=== PATIENT | female | born 2000 | race Caucasian/White ===

== ENCOUNTER 2022-12-08 00:46 | Emergency (ER) | payer MEDICAID, SELFPAY ==
--- NOTE | ~2022-12-08 | US_ITS ---
EXAMINATION: US OBSTETRICAL ULTRASOUND CLINICAL INFORMATION: Bilateral lower abdominal pain. COMPARISON: None available.. LMP: Unknown. TECHNIQUE: Ultrasound of the maternal pelvis is performed using transabdominal and transvaginal transducers. Transvaginal imaging is performed due to inadequate visualization transabdominally. M-mode Doppler is also performed. FINDINGS: Anteverted uterus. No intrauterine identified. There is prominent colonic identified at the region of the lower uterine segment/cervix. MATERNAL ADNEXA: The right maternal ovary measures 2.4 x 1.6 x 2.5 cm. Normal arterial and venous spectral waveforms are seen. The left maternal ovary measures 1.6 x 1.5 x 1.4 cm. There is no significant maternal adnexal mass. No maternal pelvic ascites. US/US pelvic ovarian doppler IMPRESSION: No intrauterine identified. No ectopic seen. Prominent clot identified in the region of the lower uterine segment/cervix. This could be associated with a failed .
--- NOTE | ~2022-12-08 | US_ITS ---
EXAMINATION: US OBSTETRICAL ULTRASOUND CLINICAL INFORMATION: Bilateral lower abdominal pain. COMPARISON: None available.. LMP: Unknown. TECHNIQUE: Ultrasound of the maternal pelvis is performed using transabdominal and transvaginal transducers. Transvaginal imaging is performed due to inadequate visualization transabdominally. M-mode Doppler is also performed. FINDINGS: Anteverted uterus. No intrauterine identified. There is prominent colonic identified at the region of the lower uterine segment/cervix. MATERNAL ADNEXA: The right maternal ovary measures 2.4 x 1.6 x 2.5 cm. Normal arterial and venous spectral waveforms are seen. The left maternal ovary measures 1.6 x 1.5 x 1.4 cm. There is no significant maternal adnexal mass. No maternal pelvic ascites. US/US OB pelvic and transvaginal IMPRESSION: No intrauterine identified. No ectopic seen. Prominent clot identified in the region of the lower uterine segment/cervix. This could be associated with a failed .
[2022-12-08 00:53] VITALS: BP 111/53; PULSE 94; RESP 20; TEMP 36.8; O2SAT 98; BMI 21.8
[2022-12-08 01:09] LABS: MANUAL DIFF FLAG NO
[2022-12-08 01:10] LABS: Basophils Absolute Auto 0.1 X10*3/uL (0.0-0.2); Basophils Percent Auto 0.4 % (0-2); Eosinophils Absolute Auto 0.1 X10*3/uL (0.0-0.4); Eosinophils Percent Auto 0.4 % (0-4); Hematocrit 33.6 % (37.0-47.0); Hemoglobin 11.4 g/dl (12.0-16.0); Imm Gran Abs Auto 0.04 X10*3/uL (0.00-0.03); Imm Gran Pct Auto 0.3 % (0.0-0.4); Lymphocytes Percent Auto 19.4 % (20-40); Mean Corpuscular HGB Conc 33.9 g/dl (31.0-35.0); Mean Corpuscular Hemoglobin 28.6 pg (27.0-33.0); Mean Corpuscular Volume 84.4 fL (80.0-98.0); Monocytes Absolute Auto 0.7 X10*3/uL (0.1-1.2); Monocytes Percent Auto 4.8 % (2-11); Neutrophils Absolute Auto 11.4 x10*3/uL (2.0-8.3); Neutrophils Percent Auto 74.7 % (45-73); Platelet Count 226 X10*3/uL (160-400); Red Blood Count 3.98 X10*6/uL (4.20-5.50); White Blood Count 15.2 X10*3/uL (4.8-10.8)
--- NOTE | 2022-12-08 01:14 | MHC.EDTECH ---
pt blood drawn and urine sample collected and sent to lab .
[2022-12-08 01:18] LABS: Appearance Urine Cloudy; Color Urine Orange; Glucose Urine UA Negative (Negative); Leukocyte Esterase Urine Moderate (2+) (Negative); Nitrite Urine Positive (Negative); Specific Gravity - Urine >= 1.030 (1.005-1.025); UMIC TRIGGER UACC YES; Urine Blood Large (3+) (Negative); Urine Ketones Negative (Negative); Urine Protein 100 (2+) mg/dL (Neg-Trace)
[2022-12-08 01:22] LABS: Bacteria Urine Trace (None Seen); Hyaline Casts Urine 0-2 /LPF (0-2); RBC Urine >20 /HPF (0-2); UACC Culture Trigger YES; WBC Urine 21-50 /HPF (0-5)
[2022-12-08 01:34] LABS: Alanine Aminotransferase 7 U/L (0-31); Albumin Level 4.2 g/dL (3.5-5.0); Alkaline Phosphatase 65 U/L (39-117); Anion Gap 14 (12-20); Aspartate Amino Transferase 15 U/L (5-31); Bilirubin Direct < 0.2 mg/dL (0.0-0.5); Bilirubin Total 0.4 mg/dL (0.0-1.0); Blood Urea Nitrogen 7 mg/dL (9-16); Calcium 9.3 mg/dL (8.4-10.2); Carbon Dioxide 21 mmol/L (22-29); Chloride 108 mmol/L (96-108); Creatinine Clr Calc Pharmacy 87.9; Estimated Glomerular Filt Rate > 60; Glucose Random 117 mg/dL (60-115); Lipase 18 U/L (8-78); Potassium 3.8 mmol/L (3.3-5.1); Sodium 139 mmol/L (135-145); Total Protein 6.8 g/dL (6.5-8.0)
[2022-12-08 01:40] LABS: HCG Quantitative 5692 mIU/mL
--- NOTE | 2022-12-08 03:24 | PC.NURSE ---
partner at bedside. this rn provided pt with pad. US tech at bedside to take pt down for US
[2022-12-08 04:17] VITALS: BP 102/55; PULSE 74; RESP 16; TEMP 36.9; O2SAT 100
--- NOTE | 2022-12-08 05:07 | ED.GENADULT ---
HPI - General Adult General Chief complaint: Vaginal Bleeding Stated complaint: 8 WEEKS , BLEEDING , CRAMPS, ABD PAIN Time Seen by Provider: 12/08/22 04:46 Source: patient Mode of arrival: ambulatory Limitations: no limitations History of Present Illness HPI narrative: 22-year-old female presents approximately 8 weeks of gestation with abdominal cramping, vaginal bleeding. Symptoms started over the past couple days. She describes the symptoms as severe. She has passed clots and tissue. She has had no fevers or chills. Describes the pain is moderate in nature. He has no clear relieving or exacerbating features. She denies any fevers or chills, diarrhea constipation. Related Data Allergies Allergy/AdvReac Type Severity Reaction Status Date / Time No Known Allergies Allergy Verified 12/08/22 00:58 [No Known Allergies*] [facility] Social History Social History Advance Directives: No Advance Directives Information Provided: Yes Physical Exam ED Vital Signs: Vital Signs - 24 hr 12/08/22 00:53 12/08/22 04:17 Temperature 98.3 F 98.4 F Pulse Rate 94 74 Respiratory Rate 20 16 Blood Pressure 111/53 L 102/55 L Pulse Oximetry 98 100 Oxygen Delivery Method Room Air Room Air BMI result Body Mass Index 21.8 GEN: Well developed, no acute distress, alert, oriented HEENT: Normocephalic, atraumatic, normal external ears, nose appears normal, no oropharyngeal edema or exudates Eyes: Normal to appearance Neck: Supple, no lymphadenopathy Respiratory: Talks in complete sentences, no respiratory distress, clear to auscultation bilaterally Cardiovascular: Regular rate and rhythm, no murmurs rubs or gallops Abdomen: Soft, nontender, nondistended, no guarding, no rebound Back: No CVA tenderness Extremities: No clubbing cyanosis or edema Neurologic: No focal neurologic deficits, cranial nerves 2-12 intact, strength is 5/5 bilaterally, gait normal Skin: No rash : no active bleeding, no tissue, external os opened, internal os closed Course Course Course Narrative: 22-year-old female presents with vaginal bleeding and abdominal pain. Examination revealed no significant tenderness, rebound or guarding. No palpable masses. Patient had an ultrasound which did not identify an IUP or an ectopic . It is possible there is debris in the cervix consistent with an miscarriage. Her quantitative hCG is not significantly elevated at only 5000. She your still waiting on a type and screen for the patient as well. Will contact OBGYN. She currently is without provider. . Reevaluation(s) Reevaluation #1: [employer] with Dr. Echeverria, recommended repeat Quant HCG now and 48 hour follow up. Reevaluation #2: Patient pending HCG #2, Rh. Oncoming doctor aware. Time: 06:38 Medical Decision Making Medical Decision Making [facility] Narrative: 22-year-old female presents with vaginal bleed abdominal discomfort. Exam was benign. He I suspect patient is having a 1st trimester miscarriage. Ectopic cannot be ruled out at this time. Her quantitative HCG was only 5000. This could certainly represent early that is not identifiable ultrasound however I doubt this. Will order a type and screen to see if patient requires RhoGAM. Will contact OBGYN. Differential Diagnosis Differential Diagnoses: The differential diagnosis associated with the presentation includes (His cares, threatened miscarriage, early trimester bleeding, vaginal bleeding, ectopic ) Threatened Admission/Observation Consideration of admission/observation: Escalation of care including admission/observation considered Consult Healthcare Provider Management of the patient was discussed with: Lead [employer] Developer Lab Data [facility] Lab Attestation statement: I reviewed the patient's lab results. 12/08/22 01:05 12/08/22 01:05 Labs: Lab Results 12/08/22 12/08/22 12/08/22 Range/Units 01:05 01:05 01:05 WBC 15.2 H (4.8-10.8) X10*3/uL RBC 3.98 L (4.20-5.50) X10*6/uL Hgb 11.4 L (12.0-16.0) g/dl Hct 33.6 L (37.0-47.0) % MCV 84.4 (80.0-98.0) fL MCH 28.6 (27.0-33.0) pg MCHC 33.9 (31.0-35.0) g/dl RDW 13.0 (11.0-16.0) % Plt Count 226 (160-400) X10*3/uL MPV 10.0 (9.4-12.3) fL Immature Gran % (Auto) 0.3 (0.0-0.4) % Neut % (Auto) 74.7 H (45-73) % Lymph % (Auto) 19.4 L (20-40) % [place] % (Auto) 4.8 (2-11) % Eos % (Auto) 0.4 (0-4) % Baso % (Auto) 0.4 (0-2) % Lymph # (Auto) 3.0 (1.2-4.9) X10*3/uL [place] # (Auto) 0.7 (0.1-1.2) X10*3/uL Eos # (Auto) 0.1 (0.0-0.4) X10*3/uL Baso # (Auto) 0.1 (0.0-0.2) X10*3/uL Abs Immat Gran (auto) 0.04 H (0.00-0.03) X10*3/uL Absolute Neuts (auto) 11.4 H (2.0-8.3) x10*3/uL Absolute Nucleated RBC 0.000 (0.0-0.012) X10*3/uL Nucleated RBC % (auto) 0.0 (0.0-0.2) /100WBC Sodium 139 (135-145) mmol/L Potassium 3.8 (3.3-5.1) mmol/L Chloride 108 (96-108) mmol/L Carbon Dioxide 21 L (22-29) mmol/L Anion Gap 14 (12-20) BUN 7 L (9-16) mg/dL Creatinine 0.69 (0.5-1.4) mg/dL Estim Creat Clear Calc 87.9 Estimated GFR > 60 Random Glucose 117 H (60-115) mg/dL Calcium 9.3 (8.4-10.2) mg/dL Total Bilirubin 0.4 (0.0-1.0) mg/dL Direct Bilirubin < 0.2 (0.0-0.5) mg/dL AST 15 (5-31) U/L ALT 7 (0-31) U/L Alkaline Phosphatase 65 (39-117) U/L Total Protein 6.8 (6.5-8.0) g/dL Albumin 4.2 (3.5-5.0) g/dL Lipase 18 (8-78) U/L Beta HCG, Quant 5692 mIU/mL Urine Color Urine Appearance Urine pH (5.0-9.0) Ur Specific [place] (1.005-1.025) Urine Protein (Neg-Trace) mg/dL Urine Glucose (UA) (Negative) mg/dL Urine Ketones (Negative) mg/dL Urine Blood (Negative) Urine Nitrite (Negative) Ur Leukocyte Esterase (Negative) Urine RBC (0-2) /HPF Urine WBC (0-5) /HPF Ur Squamous Epith Cells (0-2) /HPF Urine Bacteria (None Seen) Hyaline Casts (0-2) /LPF 12/08/22 Range/Units 01:10 WBC (4.8-10.8) X10*3/uL RBC (4.20-5.50) X10*6/uL Hgb (12.0-16.0) g/dl Hct (37.0-47.0) % MCV (80.0-98.0) fL MCH (27.0-33.0) pg MCHC (31.0-35.0) g/dl RDW (11.0-16.0) % Plt Count (160-400) X10*3/uL MPV (9.4-12.3) fL Immature Gran % (Auto) (0.0-0.4) % Neut % (Auto) (45-73) % Lymph % (Auto) (20-40) % [place] % (Auto) (2-11) % Eos % (Auto) (0-4) % Baso % (Auto) (0-2) % Lymph # (Auto) (1.2-4.9) X10*3/uL [place] # (Auto) (0.1-1.2) X10*3/uL Eos # (Auto) (0.0-0.4) X10*3/uL Baso # (Auto) (0.0-0.2) X10*3/uL Abs Immat Gran (auto) (0.00-0.03) X10*3/uL Absolute Neuts (auto) (2.0-8.3) x10*3/uL Absolute Nucleated RBC (0.0-0.012) X10*3/uL Nucleated RBC % (auto) (0.0-0.2) /100WBC Sodium (135-145) mmol/L Potassium (3.3-5.1) mmol/L Chloride (96-108) mmol/L Carbon Dioxide (22-29) mmol/L Anion Gap (12-20) BUN (9-16) mg/dL Creatinine (0.5-1.4) mg/dL Estim Creat Clear Calc Estimated GFR Random Glucose (60-115) mg/dL Calcium (8.4-10.2) mg/dL Total Bilirubin (0.0-1.0) mg/dL Direct Bilirubin (0.0-0.5) mg/dL AST (5-31) U/L ALT (0-31) U/L Alkaline Phosphatase (39-117) U/L Total Protein (6.5-8.0) g/dL Albumin (3.5-5.0) g/dL Lipase (8-78) U/L Beta HCG, Quant mIU/mL Urine Color [place] A Urine Appearance Cloudy Urine pH 5.0 (5.0-9.0) Ur Specific [place] >= 1.030 H (1.005-1.025) Urine Protein 100 (2+) H (Neg-Trace) mg/dL Urine Glucose (UA) Negative (Negative) mg/dL Urine Ketones Negative (Negative) mg/dL Urine Blood Large (3+) H (Negative) Urine Nitrite Positive H (Negative) Ur Leukocyte Esterase Moderate (2+) H (Negative) Urine RBC >20 H (0-2) /HPF Urine WBC 21-50 H (0-5) /HPF Ur Squamous Epith Cells 6-10 (0-2) /HPF Urine Bacteria Trace (None Seen) Hyaline Casts 0-2 (0-2) /LPF Radiology Impression Discussion of test interpretation with radiology: I have reviewed the radiologist's reading. ( US/US pelvic ovarian doppler IMPRESSION: No intrauterine identified. No ectopic seen. Prominent clot identified in the region of the lower uterine segment/cervix. This could be associated with a failed . Dictated By:Efe Klein MDSigned By:) Tests considered The following testing was considered but not selected: Additional blood work Prescription Management I considered prescription management with: Pain Medication and Other (RhoGAM) Discharge Plan Discharge Clinical Impression: Threatened Patient Disposition: Home, Self-Care Instructions: Threatened Miscarriage (ED) Referrals: Nitesh Echeverria MD [Physician] - 2 days (repeat quantitative HCG - if unable to see Dr. Echeverria you may return to the Emergency department)
--- NOTE | 2022-12-08 05:25 | P.CONOB_ITS ---
MARKETING AND COMMUNICATIONS OFFICER - CN: HPI Data of Consult Consult date: 12/08/22 Primary Care Provider: Unknown Physician Consult Narrative Narrative: I was consulted at 05:14 on Maddie Starks who is a 22 year old female 1 para 0 presented to the emergency room at around 8 weeks of gestation from LMP with 2 day history of abdominal cramping, vaginal bleeding associated with passage of blood clots and tissue.? No fever or chills. HCG is 5692, H&H 11.4/33.6. Rh status still pending. Pelvic Ultrasound showed the following: IMPRESSION: No intrauterine identified. No ectopic seen. Prominent clot identified in the region of the lower uterine segment/cervix. This could be associated with a failed cc:: CC: OB [facility] Social History Social History Alcohol intake: never Smoked in Last 30 Days: No Use of substances other than those prescribed or required for medical reasons: No Advance Directives: No Advance Directives Information Provided: Yes Patient : Yes Meds Allergies Allergy/AdvReac Type Severity Reaction Status Date / Time No Known Allergies Allergy Verified 12/08/22 00:58 [No Known Allergies*] [employer] AND [employer]ICATION[employer] OFFICER Physical Exam Vitals Vital signs: Temp Pulse Resp BP Pulse Ox O2 Del Method 98.4 F 74 16 102/55 L 100 Room Air 12/08/22 04:17 12/08/22 04:17 12/08/22 04:17 12/08/22 04:17 12/08/22 04:17 12/08/22 04:17 BMI result Body Mass Index 21.8 Additional Comments: Physical exam reported by Dr. Giorgi Ruano as the following: Abdominal exam: Soft nontender no guarding or rebound Pelvic exam: no evidence of active vaginal bleeding, no tissues at the cervical os MARKETING AND COMMUNICATIONS OFFICER - Results Labs 12/08/22 01:05 12/08/22 01:05 Labs: Short CBC 12/08/22 Range/Units 01:05 WBC 15.2 H (4.8-10.8) X10*3/uL Hgb 11.4 L (12.0-16.0) g/dl Hct 33.6 L (37.0-47.0) % Plt Count 226 (160-400) X10*3/uL BMP 12/08/22 01:05 Sodium 139 Potassium 3.8 Chloride 108 Carbon Dioxide 21 L BUN 7 L Creatinine 0.69 Calcium 9.3 Liver Function 12/08/22 Range/Units 01:05 Total Bilirubin 0.4 (0.0-1.0) mg/dL Direct Bilirubin < 0.2 (0.0-0.5) mg/dL AST 15 (5-31) U/L ALT 7 (0-31) U/L Alkaline Phosphatase 65 (39-117) U/L Albumin 4.2 (3.5-5.0) g/dL Urine 12/08/22 Range/Units 01:10 Urine Color [place] A Urine Appearance Cloudy Urine pH 5.0 (5.0-9.0) Ur Specific [place] >= 1.030 H (1.005-1.025) Urine Protein 100 (2+) H (Neg-Trace) mg/dL Urine Glucose (UA) Negative (Negative) mg/dL Imaging US - abdomen: Radiologist's impression: ITS Impressions Doppler Study Ultrasound 12/08/22 03:30 IMPRESSION: No intrauterine identified. No ectopic seen. Prominent clot identified in the region of the lower uterine segment/cervix. This could be associated with a failed . Pelvic/Transvag US 12/08/22 03:30 IMPRESSION: No intrauterine identified. No ectopic seen. Prominent clot identified in the region of the lower uterine segment/cervix. This could be associated with a failed . Assessment and Plan (1) Complete : Status: Acute Recommended the following to Dr. Giorgi Ruano: Check Rh if negative in antibody screen is negative, RhoGAM 300 mcg be given . Repeat hCG quantitative since last hCG level was drawn around 5 hours ago, if it is lower, recommend to discharge patient home with signs and symptoms of incomplete /ectopic , to come back to emergency room with abdominal pain and heavy vaginal bleeding, fever above 100.4, nausea and vomiting. HCG to be repeated in 48 hours and follow-up in outpatient office Called at 07:[address] Dowell HCG dropped [id number], pt is stable, recommended to d/c pt home I spent a total of 20 minutes reviewing the chart, communicating to the emergency room provider and documenting in the medical record Time Spent With Patient Time: Total time managing care of this patient today ____ minutes.
[2022-12-08 06:49] LABS: HCG Quantitative 4129 mIU/mL
[2022-12-08 07:53] VITALS: BP 102/58; PULSE 83; RESP 16; TEMP 36.7; O2SAT 99
--- NOTE | 2022-12-08 08:03 | PC.NURSE ---
Patient laying on stretcher with boyfriend at bedside. Patient stating at this time that she isn't having much vaginal bleeding. No apparent distress at this time.
== END 2022-12-08 09:03 | disposition home or self-care (01) ==
PROVIDERS: Emergency Medicine; Emergency Provider Emergency Medicine
DX: O20.0 Threatened abortion (principal); Z3A.08 8 weeks gestation of pregnancy
CPT/HCPCS: 36415; 76801; 76817; 80048; 80076; 81001; 83690; 84702; 85025; 86850; 86900; 86901; 87086; 93975; 99284